=== PATIENT | male | born 1965 | race Caucasian/White ===

== ENCOUNTER 2019-09-08 06:27 | Emergency (ER) | payer OTHER ==
[~2019-09-08] VITALS: Ht 185.4 cm; Wt 63.6 kg
[2019-09-08 06:50] LABS: HEMATOCRIT 40.3 % (42.0-52.0); HEMOGLOBIN 13.2 g/dl (13.5-17.5); MEAN CORPUSCULAR HEMOGLOBIN 30.9 pg (27.0-33.0); MEAN CORPUSCULAR HGB CONC 32.8 g/dl (32.0-36.5); MEAN CORPUSCULAR VOLUME 94.4 fl (80.0-96.0); PLATELET COUNT, AUTOMATED 346 10^3/uL (150-450); RED BLOOD COUNT 4.27 10^6/uL (4.30-6.10)
[2019-09-08 06:53] LABS: WHITE BLOOD COUNT 17.8 10^3/uL (4.0-10.0)
[2019-09-08 07:01] LABS: INR 1.04; PROTHROMBIN TIME 13.3 SECONDS (11.8-14.0)
[2019-09-08 07:09] LABS: D-DIMER QUANT 994.57 ng/ml (<500)
[2019-09-08 07:17] LABS: ALBUMIN 3.8 GM/DL (3.2-5.2); ALT/SGPT 21 U/L (12-78); ATYPICAL LYMPH 1 % (0-5); BILIRUBIN,DIRECT < 0.1 MG/DL (0.0-0.2); BILIRUBIN,TOTAL 0.3 MG/DL (0.2-1.0); EOSINOPHILS 1 % (0-3); LIPASE 192 U/L (73-393); LYMPHOCYTES 49 % (16-44); MONOCYTES 1 % (0-5); NEUTROPHILS 48 % (28-66); PLATELET ESTIMATE NORMAL (NORMAL); TOTAL PROTEIN 7.4 GM/DL (6.4-8.2)
[2019-09-08] MEDS ORDERED: ISOVUE-370 76% 100ML VIAL As Ordered ONE (07:51)
[2019-09-08] MEDS ORDERED: NORCO, ANEXSIA 5/325MG TABLET (HYDROcodone/ACETAMINOPHEN) PO ONE (08:15)
--- NOTE | 2019-09-08 08:25 | REP ---
Portable chest x-ray: Single view. History: Chest pain. Comparison chest x-ray: July 02, 2015. Findings: Monitoring electrodes overlie the chest. There are surgical clips in the left apex with some biapical pleuroparenchymal fibrosis again seen. No acute infiltrate is noted. Heart is not enlarged. Interstitial markings are somewhat prominent unchanged. Impression: Chronic changes. No acute cardiopulmonary disease seen. Electronically Signed by Sage Tamayo MD 09/08/2019 08:17 A
--- NOTE | 2019-09-08 09:07 | ECGEPIP ---
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
--- NOTE | 2019-09-08 10:19 | REP ---
CT PULMONARY ANGIOGRAM: WITH IV CONTRAST. HISTORY: Pleuritic chest pain. COMPARISON STUDIES: July 02, 2006 CONTRAST DOSE: 75 mL of Isovue [address] TECHNIQUE: Helical scanning is acquired and overlapping 1.5 mm and contiguous 3 mm axial images are reformatted. In addition, maximum intensity projection and multiplanar re-formation images are generated in sagittal and coronal imaging projections. CT PULMONARY ANGIOGRAPHIC FINDINGS: There is good opacification of the pulmonary arterial tree. No filling defect or vessel cutoff is seen to suggest pulmonary embolism. Thoracic aorta enhances homogeneously without evidence of aneurysm or dissection. The ascending aorta measures 3.4 cm in AP dimension at the level of the right main pulmonary artery. There is no evidence of pericardial effusion. There is multifocal partially calcific pleural plaquing bilaterally. There are bilateral small to moderate-sized bullae. Biapical pleuroparenchymal fibrosis is seen. No infiltrate is noted. No pulmonary mass or significant pulmonary nodule is appreciated. No bony destructive lesion is seen. There are multiple stippled calcifications distributed in the pancreas, consistent with chronic pancreatitis. Normal adrenal glands. There are multiple low-density small liver lesions, consistent with cysts. The visualized upper abdominal structures are otherwise unremarkable IMPRESSION: Chronic of multifocal bilateral calcific pleural plaquing and fibrotic changes. Blebs and bullae bilaterally. Biapical pleuroparenchymal fibrosis. There is no CT evidence of pulmonary embolus or other acute abnormality. Electronically Signed by Sage Tamayo MD 09/08/2019 12:45 P
[2019-09-08 13:15] VITALS: BP 107/69
== END 2019-09-08 13:46 | disposition home or self-care (01) ==
LOC: M ED 06:27
DX: R07.9 Chest pain, unspecified (principal); R00.1 Bradycardia, unspecified; Z88.8 Allergy status to other drugs, medicaments and biological substances
CPT/HCPCS: 71045; 71275; 80047; 80076; 83690; 84484; 85025; 85379; 85610; 93005; 93041; 94760; 99285; Q9967

== ENCOUNTER 2020-08-11 16:57 | Emergency (ER) | payer OTHER ==
[~2020-08-11] VITALS: Ht 185.4 cm; Wt 61.4 kg
[2020-08-11] MEDS ORDERED: ZOLO100T PO (17:12)
--- NOTE | 2020-08-11 18:59 | REP ---
INDICATION: SOB. COMPARISON: 09/08/2019 the latest prior TECHNIQUE: PA and lateral FINDINGS: Cardiomediastinal silhouette is unchanged for the heart is not enlarged. Lung kern are hyperexpanded with basilar fibrotic change right greater than left which appears stable. There is biapical pleuroparenchymal scarring which is unchanged. Surgical clips are again seen in the left upper lobe region there is no change in the osseous structures. IMPRESSION: Stable appearing chronic changes. Consider follow-up with chest CT. <Electronically signed by Freedom Christensen > 08/11/20 [id number]
[2020-08-11 19:20] LABS: BASO # 0.1 10^3/uL (0.0-0.2); BASO % 0.4 % (0.0-1.0); EOS # 0.1 10^3/uL (0.0-0.5); EOS % 0.9 % (0.0-3.0); HEMATOCRIT 41.5 % (42.0-52.0); HEMOGLOBIN 13.8 g/dl (13.5-17.5); LYMPH # 3.9 10^3/uL (1.5-5.0); LYMPH % 28.5 % (24.0-44.0); MEAN CORPUSCULAR HEMOGLOBIN 31.2 pg (27.0-33.0); MEAN CORPUSCULAR HGB CONC 33.3 g/dl (32.0-36.5); MEAN CORPUSCULAR VOLUME 93.7 fl (80.0-96.0); MONO # 0.9 10^3/uL (0.0-0.8); MONO % 6.7 % (2.0-8.0); NEUTROPHILS # 8.7 10^3/uL (1.5-8.5); NEUTROPHILS % 63.1 % (36.0-66.0); PLATELET COUNT, AUTOMATED 391 10^3/uL (150-450); RED BLOOD COUNT 4.43 10^6/uL (4.30-6.10); WHITE BLOOD COUNT 13.8 10^3/uL (4.0-10.0)
[2020-08-11 19:46] LABS: ALT/SGPT 21 U/L (12-78); BILIRUBIN,DIRECT 0.1 MG/DL (0.0-0.2); BILIRUBIN,TOTAL 0.7 MG/DL (0.2-1.0); CK-MB VALUE MASS < 1.0 NG/ML (<3.6); CPK CREATINE PHOSPHOKINASE 216 U/L (39-308); MB/CK RELATIVE INDEX 0.46 (< OR =4); TOTAL PROTEIN 7.8 GM/DL (6.4-8.2); TROPONIN I < 0.02 NG/ML (< 0.10)
[2020-08-11] MEDS ORDERED: ISOVUE-370 76% 100ML VIAL As Ordered ONE (19:51)
--- NOTE | 2020-08-11 21:05 | ECGEPIP ---
[facility] - ED Test Date: 2020-08-11 Pat Name: BIJAL DIOP Department: Room: - Gender: Male Count Team Member: [facility] : 1965 Requested By: NISHA Vásquez PA-C Order Number: [id number] Reading MD: Sylvia Alcazar Measurements Intervals [place] Rate: 64 P: 77 MI: 166 QRS: 64 QRSD: 92 T: 57 QT: 388 QTc: 400 Interpretive Statements Normal sinus rhythm Minimal voltage criteria for LVH, may be normal variant ( Sokolow-Rodriguez ) NSTTW abnormalities similar 09/08/19 Electronically Signed on 08-11-2020 21:04:44 EDT by Sylvia Alcazar
--- NOTE | 2020-08-11 21:11 | REPVR ---
PROCEDURE INFORMATION: Exam: CT Chest With Contrast; Diagnostic Exam date and time: 08/11/2020 8:14 PM Age: 54 years old Clinical indication: Other: SOB TECHNIQUE: Imaging protocol: Diagnostic computed tomography of the chest with contrast. 3D rendering (Not supervised by radiologist): MIP and/or 3D reconstructed images were created by the technologist. Radiation optimization: All CT scans at this facility use at least one of these dose optimization techniques: automated exposure control; mA and/or kV adjustment per patient size (includes targeted exams where dose is matched to clinical indication); or iterative reconstruction. Contrast material: ISOVUE 370; Contrast volume: 75 ml; Contrast route: INTRAVENOUS (IV); COMPARISON: CT ANGIO CHEST 09/08/2019 7:59 AM FINDINGS: Lungs: Emphysema with subpleural cystic changes and fibrosis in the lung apices. No airspace consolidation or masses. Pleural spaces: Pleural thickening and calcified plaques are unchanged. No pneumothorax or pleural effusion. Heart: Unremarkable. No cardiomegaly. No pericardial effusion. Aorta: Unremarkable. No aortic aneurysm. Lymph nodes: Unremarkable. No enlarged lymph nodes. Bones/joints: Unremarkable. No acute fracture. Soft tissues: Unremarkable. IMPRESSION: 1. Emphysema and chronic interstitial lung changes. 2. No acute findings. Electronically signed by: Maikol Barrios On 08/11/2020 21:11:30 PM
[2020-08-11 22:06] VITALS: BP 119/82
--- NOTE | 2020-08-12 15:02 | ED PDOC ---
Post-Departure Follow-Up [facility] faxed formal report of cxr for Michael Childers MD Aug 12, 2020 15:02
== END 2020-08-11 22:10 | disposition home or self-care (01) ==
LOC: M ED 16:57
DX: J43.9 Emphysema, unspecified (principal); R94.31 Abnormal electrocardiogram [ECG] [EKG]; L40.52 Psoriatic arthritis mutilans; Z79.899 Other long term (current) drug therapy; Z88.1 Allergy status to other antibiotic agents; Z87.891 Personal history of nicotine dependence; Z98.890 Other specified postprocedural states
CPT/HCPCS: 36415; 71046; 71260; 80047; 80076; 82550; 82553; 84443; 84484; 85025; 85379; 93005; 99284; G0103; Q9967

== ENCOUNTER 2023-04-29 03:16 | Emergency (ER) | payer OTHER ==
[~2023-04-29] VITALS: Ht 185.4 cm; Wt 59.1 kg
[~2023-04-29 03:16] MED LIST: ZOLO100T PO
[2023-04-29] MEDS ORDERED: COLC0.6T47 PO (03:30)
[2023-04-29] MEDS ORDERED: TRIA2LOT TOP (03:30)
[2023-04-29] MEDS ORDERED: CEPH500C PO (03:30)
[2023-04-29 08:31] LABS: BASO # 0.1 10^3/uL (0.0-0.2); BASO % 0.4 % (0.0-1.0); EOS # 0.2 10^3/uL (0.0-0.5); EOS % 1.2 % (0.0-3.0); HEMATOCRIT 35.7 % (42.0-52.0); HEMOGLOBIN 12.3 g/dl (13.5-17.5); LYMPH % 23.3 % (24.0-44.0); MEAN CORPUSCULAR HEMOGLOBIN 31.5 pg (27.0-33.0); MEAN CORPUSCULAR HGB CONC 34.5 g/dl (32.0-36.5); MEAN CORPUSCULAR VOLUME 91.5 fl (80.0-96.0); MONO # 1.1 10^3/uL (0.0-0.8); MONO % 8.3 % (2.0-8.0); NEUTROPHILS # 8.5 10^3/uL (1.5-8.5); NEUTROPHILS % 66.6 % (36.0-66.0); PLATELET COUNT, AUTOMATED 324 10^3/uL (150-450); WHITE BLOOD COUNT 12.7 10^3/uL (4.0-10.0)
[2023-04-29 08:46] LABS: ERYTHROCYTE SEDIMENTATION RATE 19 mm/hr (0-20)
[2023-04-29 09:00] LABS: URIC ACID 5.2 MG/DL (3.7-9.2)
[2023-04-29 09:03] LABS: BLOOD UREA NITROGEN 14 MG/DL (9-23); CARBON DIOXIDE LEVEL 27 MMOL/L (20-31); CHLORIDE LEVEL 104 MMOL/L (98-107); CREATININE FOR GFR 0.71 MG/DL (0.70-1.30); GLOMERULAR FILTRATION RATE > 60.0 (>56); GLUCOSE, FASTING 86 MG/DL (60-100); POTASSIUM SERUM 4.2 MMOL/L (3.5-5.1); SODIUM LEVEL 136 MMOL/L (136-145)
[2023-04-29] MEDS ORDERED: PRED20TA PO (09:23)
[2023-04-29] MEDS: predniSONE 20 MG TAB PO ONE (09:23)
[2023-04-29 09:32] VITALS: BP 109/62; TEMP 96.4; O2SAT 100
== END 2023-04-29 10:08 | disposition home or self-care (01) ==
LOC: M ED 03:16
DX: M10.061 Idiopathic gout, right knee (principal); Z87.891 Personal history of nicotine dependence; Z88.1 Allergy status to other antibiotic agents; Z79.52 Long term (current) use of systemic steroids; Z79.899 Other long term (current) drug therapy; Z79.810 Long term (current) use of selective estrogen receptor modulators (SERMs)
CPT/HCPCS: 36415; 73564; 80048; 84550; 85025; 85652; 86140; 99284; J7512